=== PATIENT | female | born 1965 | race Caucasian/White ===

== ENCOUNTER 2024-04-28 06:25 | Day surgery (SDC) | payer OTHER, SELFPAY ==
[2024-04-22 08:05] VITALS: BMI 34.2
--- NOTE | 2024-04-24 15:15 | P.CONAN_ITS ---
Documented by User: Selma Ingram NP 04/24/24 15:15 HPI - Anesthesia Eval Consult details Narrative: 58yo F for Right Cataract Extraction IOL Insertion No previous cataract on record PMFSH Past Medical History Medical History Post-nasal drip Sarcoidosis Obesity (BMI 30-39.9) Migraine Osteoarthritis Surgical History Surgical History Hx of cholecystectomy History of Hx of tubal ligation History of esophagogastroduodenoscopy (EGD) Social History Social History Are you a primary palliative care specialist to a significant other at home: No Patient Tobacco Use Status: Never used Tobacco Use of substances other than those prescribed or required for medical reasons: No Are you DNR?: No Advance Directives: No Advance Directives Information Provided: Yes Advance Directives on File: No Patient : No : No Meds Allergies Allergy/AdvReac Type Severity Reaction Status Date / Time acetaminophen [From Percocet] Allergy Vomiting Verified 04/22/24 08:01 environmental allergies Allergy Unknown Verified 04/22/24 08:01 oxycodone [From Percocet] Allergy Vomiting Verified 04/22/24 08:01 shellfish derived Allergy Anaphylaxis Verified 04/22/24 08:01 Home Medications ?Medication ?Instructions ?Recorded ?Confirmed ?Last Taken ?Type acetaminophen 325 mg tablet 650 mg PO Q4H PRN Pain 04/22/24 04/22/24 Unknown History albuterol sulfate 90 mcg/actuation 2 puff inhalation Q4-6H PRN 04/22/24 04/22/24 Unknown History aerosol inhaler shortness of breath and wheezing cetirizine 10 mg tablet (Zyrtec) 10 mg PO DAILY PRN Allergy Symptoms 04/22/24 04/22/24 Unknown History epinephrine 0.3 mg/0.3 mL IM 04/22/24 Unknown History injection, auto-injector verapamil 120 mg tablet,extended 120 mg PO DAILY 04/22/24 04/22/24 Unknown History release Exam Height,Weight and Vital Signs: Height 5 ft 4.96 in Weight 93 kg Assessment and Plan Assessment Anesthesia Assessment: Chart Reviewed Documented by User: Claudia Darling MD 04/28/24 07:48 PMFSH Past Medical History Medical History Post-nasal drip Sarcoidosis Obesity (BMI 30-39.9) Migraine Osteoarthritis Family History Family history of problems with anesthesia: No Surgical History Surgical History Hx of cholecystectomy History of Hx of tubal ligation History of esophagogastroduodenoscopy (EGD) History of Problems with Anesthesia: No Social History Social History Are you a primary palliative care specialist to a significant other at home: No Patient Tobacco Use Status: Never used Tobacco Use of substances other than those prescribed or required for medical reasons: No Are you DNR?: No Advance Directives: No Advance Directives Information Provided: Yes Advance Directives on File: No Patient : No : No Meds Allergies Allergy/AdvReac Type Severity Reaction Status Date / Time acetaminophen [From Percocet] Allergy Vomiting Verified 04/22/24 08:01 environmental allergies Allergy Unknown Verified 04/22/24 08:01 oxycodone [From Percocet] Allergy Vomiting Verified 04/22/24 08:01 shellfish derived Allergy Anaphylaxis Verified 04/22/24 08:01 Home Medications ?Medication ?Instructions ?Recorded ?Confirmed ?Last Taken ?Type acetaminophen 325 mg tablet 650 mg PO Q4H PRN Pain 04/22/24 04/22/24 Unknown History albuterol sulfate 90 mcg/actuation 2 puff inhalation Q4-6H PRN 04/22/24 04/22/24 Unknown History aerosol inhaler shortness of breath and wheezing cetirizine 10 mg tablet (Zyrtec) 10 mg PO DAILY PRN Allergy Symptoms 04/22/24 04/22/24 Unknown History epinephrine 0.3 mg/0.3 mL IM 04/22/24 Unknown History injection, auto-injector verapamil 120 mg tablet,extended 120 mg PO DAILY 04/22/24 04/22/24 Unknown History release Exam Airway Mallampati Class: II TM Dist: >3cm Neck ROM: Full Heart: rrr Lungs: cta Assessment and Plan Assessment Anesthesia Assessment: Anesthesia Plan Discussed Final Anesthetic Review Family History of Problems with Anesthesia: No History of Problems with Anesthesia: No NPO: Yes ASA Class: III (obesity, likely sleep apnea by StOP BANG criteria) Final Preanesthetic Review: No Changes in Pt Med Stat, Meds/Allgs Chart Reviewed, Consent Obtained/Reviewed and Anes Risks/Benef Reviewed Patient Risk: Intermediate Procedure Risk: Low Anesthetic Plan Anesthetic Plan: MAC: Disposition: Standard PACU
[2024-04-28 06:56] VITALS: BP 141/86; PULSE 92; RESP 20; TEMP 36.3; O2SAT 97
[2024-04-28] MEDS: Lactated Ringers 500 ML 50 ML IV (07:05)
[2024-04-28] MEDS: Tetracaine HCl/PF 0.5% Oph Sol 4 ML DROPS 1 DROP EYE-RIGHT (07:05)
[2024-04-28] MEDS: Ketorolac Tromethamine 0.5% Op 10 ML DROPS 1 DROP EYE-RIGHT ×3 (07:05→07:08)
[2024-04-28] MEDS: Cyclopentolate 1 % Ophth Sol 2 ML DRPBTL 1 DROP EYE-RIGHT ×3 (07:05→07:08)
[2024-04-28] MEDS: Tropicamide 1 % Ophth Sol 3 ML BTL 1 DROP EYE-RIGHT ×3 (07:06→07:09)
[2024-04-28] MEDS: Phenylephrine HCL 2.5% Oph SoL 2 ML BOTTLE 1 DROP EYE-RIGHT ×3 (07:06→07:09)
--- NOTE | 2024-04-28 08:00 | MHC.SHP ---
Pre-Procedural Eval Section A - 24 Hr Update-Section A only Date of Service: 04/28/24 The patient is an INPATIENT: No Changes since office visit: No Cold of Flu in the past 2 weeks, No New Medical Problems, No Changes in Medication and No Patient answered all questions The patient has been examined within 24 hours of the surgical procedure. The History & Physical has been completed within 30 days and I have reviewed it.: Yes Section B - Complete if H&P > 30 days Chief Complaint: Age-related nuclear cataract, right eye Allergies: Allergies Allergy/AdvReac Type Severity Reaction Status Date / Time acetaminophen [From Percocet] Allergy Vomiting Verified 04/22/24 08:01 environmental allergies Allergy Unknown Verified 04/22/24 08:01 oxycodone [From Percocet] Allergy Vomiting Verified 04/22/24 08:01 shellfish derived Allergy Anaphylaxis Verified 04/22/24 08:01 Plan Diagnosis/Plan: Unchanged I have reviewed the history and physical and performed a pertinent physical examination on my patient. No changes have occurred unless specified. Time Spent With Patient Time: Total time managing care of this patient today ____ minutes.
--- NOTE | 2024-04-28 08:01 | P.PCNO_ITS ---
Ophthalmology Procedure Procedure Date of Service: 04/28/24 Ophthalmology Viscoelastic: Healon Duet Dual Pack Pro Ophthalmology Lenses: IOL Acrysof MP - MA60AC (20) Procedure Notes: PREOPERATIVE DIAGNOSIS: Decreased visual acuity right eye secondary to cataract POSTOPERATIVE DIAGNOSIS: Same PROCEDURE: Right cataract extraction with intraocular lens insertion SURGEON: Perico Macdonald M.D. ANESTHESIA: Topical/MAC ESTIMATED BLOOD LOSS: None COMPLICATIONS: None After obtaining informed consent, the patient was brought to the operating room suite and placed in the supine position. After adequate sedation per anesthesia, topical drops of Tetracaine were given to the right eye. The eye was then prepped and draped in the usual sterile fashion. The operating room microscope was then positioned over the operative eye and a lid speculum placed. A paracentesis was created. Viscoelastic was then instilled into the anterior chamber. A three plane incision was then created temporally, utilizing a 2.85 mm keratome. Capsulotomy forceps were then utilized to create a circular tear capsulotomy. Hydrodissection and hydrodelineation were carried out until adequate mobilization of the nucleus occurred. Phacoemulsification was then utilized to remove the dense central nucl eus followed by removal of the cortical material utilizing the automated aspiration irrigation unit. Viscoelastic was instilled into the posterior capsular bag followed by placement of a posterior chamber intraocular lens without difficulty. The residual Viscoelastic was then removed utilizing the automated IA machine. The wound was checked and found to be watertight. The patient tolerated the procedure well and the lid speculum was removed. Intracameral injection of Vigamox 0.1 mL followed by a subtenon injection of Kenalog-40 0.2 mL were administered. The patient will be seen in the a.m.
[2024-04-28 08:32] VITALS: BP 145/88; PULSE 69; RESP 16; TEMP 36.1; O2SAT 97
== END 2024-04-28 08:39 | disposition home or self-care (01) ==
PROVIDERS: PCP Nurse Practitioner Family; Visit Provider Ophthalmology
PROC: (CPT 66985; principal; 2024-04-28 08:00)
DX: H25.11 Age-related nuclear cataract, right eye (principal); H54.7 Unspecified visual loss; I10 Essential (primary) hypertension; G43.909 Migraine, unspecified, not intractable, without status migrainosus; E66.9 Obesity, unspecified; Z68.34 Body mass index [BMI] 34.0-34.9, adult; Z79.899 Other long term (current) drug therapy; Z88.5 Allergy status to narcotic agent
CPT/HCPCS: 66984; J2250; J3301; V2630

== ENCOUNTER 2024-05-12 06:32 | Day surgery (SDC) | payer OTHER, SELFPAY ==
[2024-04-22 08:19] VITALS: BMI 34.2
--- NOTE | 2024-05-08 12:09 | P.CONAN_ITS ---
Documented by User: Selma Ingram NP 05/08/24 12:10 HPI - Anesthesia Eval Consult details Narrative: 58yo F for Left Cataract Extraction IOL Insertion Right eye 04/28/24: Midaz 2 PMFSH Past Medical History Medical History Post-nasal drip Sarcoidosis Obesity (BMI 30-39.9) Migraine Osteoarthritis Family History Family history of problems with anesthesia: No Surgical History Surgical History Hx of cholecystectomy History of Hx of tubal ligation History of esophagogastroduodenoscopy (EGD) History of Problems with Anesthesia: No Social History Social History Are you a primary daycare teacher to a significant other at home: No Patient Tobacco Use Status: Never used Tobacco Use of substances other than those prescribed or required for medical reasons: No Are you DNR?: No Advance Directives: No Advance Directives Information Provided: Yes Advance Directives on File: No Patient : No : No Meds Allergies Allergy/AdvReac Type Severity Reaction Status Date / Time acetaminophen [From Percocet] Allergy Vomiting Verified 04/22/24 08:01 environmental allergies Allergy Unknown Verified 04/22/24 08:01 oxycodone [From Percocet] Allergy Vomiting Verified 04/22/24 08:01 shellfish derived Allergy Anaphylaxis Verified 04/22/24 08:01 Home Medications ?Medication ?Instructions ?Recorded ?Confirmed ?Last Taken ?Type acetaminophen 325 mg tablet 650 mg PO Q4H PRN Pain 04/22/24 04/22/24 Unknown History albuterol sulfate 90 mcg/actuation 2 puff inhalation Q4-6H PRN 04/22/24 04/22/24 Unknown History aerosol inhaler shortness of breath and wheezing cetirizine 10 mg tablet (Zyrtec) 10 mg PO DAILY PRN Allergy Symptoms 04/22/24 04/22/24 Unknown History epinephrine 0.3 mg/0.3 mL IM 04/22/24 Unknown History injection, auto-injector verapamil 120 mg tablet,extended 120 mg PO DAILY 04/22/24 04/22/24 Unknown History release Exam Height,Weight and Vital Signs: Height 5 ft 4.96 in Weight 93 kg Assessment and Plan Final Anesthetic Review Family History of Problems with Anesthesia: No History of Problems with Anesthesia: No Documented by User: Raleigh Wells MD 05/12/24 07:36 [facility] Past Medical History Medical History Post-nasal drip Sarcoidosis Obesity (BMI 30-39.9) Migraine Osteoarthritis Surgical History Surgical History Hx of cholecystectomy History of Hx of tubal ligation History of esophagogastroduodenoscopy (EGD) Social History Social History Are you a primary daycare teacher to a significant other at home: No Patient Tobacco Use Status: Never used Tobacco Use of substances other than those prescribed or required for medical reasons: No Are you DNR?: No Advance Directives: No Advance Directives Information Provided: Yes Advance Directives on File: No Patient : No : No Meds Allergies Allergy/AdvReac Type Severity Reaction Status Date / Time acetaminophen [From Percocet] Allergy Vomiting Verified 04/22/24 08:01 environmental allergies Allergy Unknown Verified 04/22/24 08:01 oxycodone [From Percocet] Allergy Vomiting Verified 04/22/24 08:01 shellfish derived Allergy Anaphylaxis Verified 04/22/24 08:01 Home Medications ?Medication ?Instructions ?Recorded ?Confirmed ?Last Taken ?Type acetaminophen 325 mg tablet 650 mg PO Q4H PRN Pain 04/22/24 04/22/24 Unknown History albuterol sulfate 90 mcg/actuation 2 puff inhalation Q4-6H PRN 04/22/24 04/22/24 Unknown History aerosol inhaler shortness of breath and wheezing cetirizine 10 mg tablet (Zyrtec) 10 mg PO DAILY PRN Allergy Symptoms 04/22/24 04/22/24 Unknown History epinephrine 0.3 mg/0.3 mL IM 04/22/24 Unknown History injection, auto-injector verapamil 120 mg tablet,extended 120 mg PO DAILY 04/22/24 04/22/24 Unknown History release Exam Airway Mallampati Class: II TM Dist: >3cm Neck ROM: Full Assessment and Plan Assessment Anesthesia Assessment: Anesthesia Plan Discussed and Chart Reviewed Final Anesthetic Review NPO: Yes ASA Class: III Final Preanesthetic Review: No Changes in Pt Med Stat, Meds/Allgs Chart Reviewed, Consent Obtained/Reviewed and Anes Risks/Benef Reviewed Patient Risk: Intermediate Procedure Risk: Low Anesthetic Plan Anesthetic Plan: MAC: Disposition: Standard PACU
[2024-05-12 07:33] VITALS: BP 132/78; PULSE 97; RESP 16; TEMP 36.2; O2SAT 97; BMI 34.7
[2024-05-12] MEDS: Tetracaine HCl/PF 0.5% Oph Sol 4 ML DROPS 1 DROP EYE-LEFT (07:45)
[2024-05-12] MEDS: Cyclopentolate 1 % Ophth Sol 2 ML DRPBTL 1 DROP EYE-LEFT ×3 (07:48→08:08)
[2024-05-12] MEDS: Phenylephrine HCL 2.5% Oph SoL 2 ML BOTTLE 1 DROP EYE-LEFT ×3 (07:50→08:10)
[2024-05-12] MEDS: Ketorolac Tromethamine 0.5% Op 10 ML DROPS 1 DROP EYE-LEFT ×3 (07:53→08:12)
[2024-05-12] MEDS: Tropicamide 1 % Ophth Sol 3 ML BTL 1 DROP EYE-LEFT ×3 (07:56→08:15)
[2024-05-12] MEDS: Lactated Ringers 500 ML 50 ML IV (07:56)
--- NOTE | 2024-05-12 08:41 | MHC.SHP ---
Pre-Procedural Eval Section A - 24 Hr Update-Section A only Date of Service: 05/12/24 The patient is an INPATIENT: No Changes since office visit: No Cold of Flu in the past 2 weeks, No New Medical Problems, No Changes in Medication and No Patient answered all questions The patient has been examined within 24 hours of the surgical procedure. The History & Physical has been completed within 30 days and I have reviewed it.: Yes Section B - Complete if H&P > 30 days Chief Complaint: Age-related nuclear cataract, left eye Allergies: Allergies Allergy/AdvReac Type Severity Reaction Status Date / Time acetaminophen [From Percocet] Allergy Vomiting Verified 04/22/24 08:01 environmental allergies Allergy Unknown Verified 04/22/24 08:01 oxycodone [From Percocet] Allergy Vomiting Verified 04/22/24 08:01 shellfish derived Allergy Anaphylaxis Verified 04/22/24 08:01 Plan Diagnosis/Plan: Unchanged I have reviewed the history and physical and performed a pertinent physical examination on my patient. No changes have occurred unless specified. Time Spent With Patient Time: Total time managing care of this patient today ____ minutes.
--- NOTE | 2024-05-12 08:42 | HO.PNOPHT ---
Ophthalmology Procedure Procedure Date of Service: 05/12/24 Ophthalmology Viscoelastic: Healon Duet Dual Pack Pro Ophthalmology Lenses: IOL Acrysof MP - MA60AC (20) Procedure Notes: PREOPERATIVE DIAGNOSIS: Decreased visual acuity left eye secondary to cataract POSTOPERATIVE DIAGNOSIS: Same PROCEDURE: Left cataract extraction with intraocular lens insertion SURGEON: Perico Macdonald M.D. ANESTHESIA: Topical/MAC ESTIMATED BLOOD LOSS: None COMPLICATIONS: None After obtaining informed consent, the patient was brought to the operation room suite and placed in the supine position. After adequate sedation per anesthesia, topical drops of Tetracaine were given to the left eye. The eye was then prepped and draped in the usual sterile fashion. The operating room microscope was then positioned over the operative eye and a lid speculum placed. A paracentesis was created. Viscoelastic was then instilled into the anterior chamber. A three plane incision was then created temporally, utilizing a 2.85 mm keratome. Capsulotomy forceps were then utilized to create a circular tear capsulotomy. Hydrodissection and hydrodelineation were carried out until adequate mobilization of the nucleus occurred. Phacoemulsification was then utilized to remove the dense central nucleus followed by removal of the cortical material utilizing the automated aspiration irrigation unit. Viscoat elastic was instilled into the posterior capsular bag followed by placement of a posterior chamber intraocular lens without difficulty. The residual Viscoat elastic was then removed utilizing the automated IA machine. The wound was check and found to be watertight. The patient tolerated the procedure well and the lid speculum was removed. Intracameral injection of Vigamox 0.1 mL followed by a subtenon injection of Kenalog-40 0.2 mL were administered. The patient will be seen in the a.m.
[2024-05-12 09:12] VITALS: BP 139/83; PULSE 68; RESP 15; TEMP 36.4; O2SAT 98
[2024-05-12 09:27] VITALS: BP 149/82; PULSE 69; RESP 18; TEMP 36.1; O2SAT 98
== END 2024-05-12 09:30 | disposition home or self-care (01) ==
PROVIDERS: PCP Nurse Practitioner Family; Visit Provider Ophthalmology
PROC: (CPT 66985; principal; 2024-05-12 08:20)
DX: H25.12 Age-related nuclear cataract, left eye (principal); H54.7 Unspecified visual loss
CPT/HCPCS: 66984; J2250; J2704; J3010; J3301; V2630

== ENCOUNTER 2024-11-11 11:16 | Outpatient (REF) | payer OTHER, SELFPAY ==
[2024-11-11 11:36] LABS: MANUAL DIFF FLAG NO
[2024-11-11 11:57] LABS: Basophils Percent Auto 0.3 % (0-2); Eosinophils Absolute Auto 0.2 X10*3/uL (0.0-0.4); Eosinophils Percent Auto 1.8 % (0-4); Hematocrit 43.6 % (37.0-47.0); Hemoglobin 14.3 g/dl (12.0-16.0); Imm Gran Abs Auto 0.03 X10*3/uL (0.00-0.03); Imm Gran Pct Auto 0.3 % (0.0-0.4); Lymphocytes Absolute Auto 2.5 X10*3/uL (1.2-4.9); Mean Corpuscular HGB Conc 32.8 g/dl (31.0-35.0); Mean Corpuscular Hemoglobin 30.8 pg (27.0-33.0); Mean Platelet Volume 10.2 fL (9.4-12.3); Monocytes Absolute Auto 0.5 X10*3/uL (0.1-1.2); Monocytes Percent Auto 4.5 % (2-11); Neutrophils Absolute Auto 7.6 x10*3/uL (2.0-8.3); Neutrophils Percent Auto 70.1 % (45-73); Platelet Count 310 X10*3/uL (160-400); Red Blood Count 4.64 X10*6/uL (4.20-5.50); White Blood Count 10.8 X10*3/uL (4.8-10.8)
[2024-11-11 12:17] LABS: Rheumatoid Factor < 13.0 IU/mL (<15.0)
[2024-11-11 12:19] LABS: C Reactive Protein 1.51 mg/dL (< or = 0.50)
--- OUTSIDE RECORDS SUMMARY | 2024-11-11 12:33 | XMS_ITS | Patient Health Record ---
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 . . 2-3x/week for 3- 4 weeks 01/30/2019 Not-Taking Voltaren 1 % as directed Externally Active Night Splint AFO - L1930 as directed 01/30/2019 Not-Taking Meloxicam 15 MG 1 tablet Orally Once a day for 30 day(s) Not-Taking Meloxicam 15 MG 1 tablet Orally Once a day for 30 Not-Taking SUMAtriptan Not-Taki ng Doxycycline Monohydrate 100 MG 1 capsule Orally Once a day for 10 days 02/07/2023 Not-Taking Iron Active Immunizations Vaccine Route Administration Date Status Comme nts COVID-19 Moderna Vaccine Unknown 03/10/2021 Administered 1st 02/10/2021 2nd 03/10/2021 Influenza Unknown 06/24/2021 Administered Social History Tobacco Use: Social History Observation Description Date Details (start date - stop date) Never Smoker NA - NA Tobacco Use/Smoking Question Answer Notes Are you a: nonsmoker Additional Findings: Tobacco Non-User Current no n-smoker Alcohol Screen Question Answer Notes Did you have a drink containing alcohol in the p ast year? No Points 0 Interpretation Negative Tobacco use other than smoking: Question Answer Notes Are you an other tobacco user? No Problems Problem Type SNOMED Code ICD Code Onset Dates Problem Status W/U Status Risk Notes Problem Localized, primary osteoarthritis of the ankle and/or foot (311449759) Primary osteoarthrit is, right ankle and foot (M19.071) Active confirmed Problem Acquired hallux valgus (57620585) Hallux valgus (acquired), right foot (M20.11) Active confirmed Plan Of Treatment Pending Test Test Name Order Date X ray : Foot, left 3V 04/30/2017 X ray : Foot, right 3V 01/30/2019 X ray : Foot, right 3V 04/30/2017 Insurance Providers Payer Name Payer Address Payer Phone Subscriber Number Group Number Insured Name Patient Relationship to Insured Coverage Start Date Coverage End Date [employer] ([facility]) [address] [place]ER AG[place] [id number] Rupa Jones Self - patient is the insured Medical (General) History Medical History History ICD Code Anemia Headaches Chicken pox Surgical History Surgery Date(Month/Year) section [phone]
[2024-11-11 12:36] LABS: Erythrocyte Sedimentation Rate 14 MM/HR (0-20)
[2024-11-13 14:39] LABS: Anti Nuclear Antibody Screen NEGATIVE (NEGATIVE)
[2024-11-14 15:43] LABS: Treponema pallidum Ab FTA ABS Nonreactive (Nonreactive)
[2024-11-15 15:39] LABS: Angiotensin Converting Enzyme 22.9 U/L (9-67)
== END 2024-11-11 11:17 | disposition home or self-care (01) ==
LOC: HO.LAB 11:16
PROVIDERS: Visit Provider Ophthalmology
DX: H20.9 Unspecified iridocyclitis (principal)
CPT/HCPCS: 36415; 82164; 85025; 85652; 86038; 86140; 86431; 86780